=== PATIENT | female | born 2000 | race Caucasian/White ===

== ENCOUNTER 2023-08-04 11:45 | Emergency (ER) | payer BC ==
[~2023-08-04] VITALS: Ht 172.7 cm; Wt 86.2 kg
[2023-08-04] MEDS ORDERED: FAMOTIDINE/PF INJ 20 MG/2 ML VIAL IV ONE ×2 (12:30→12:53)
[2023-08-04] MEDS ORDERED: IV NS 0.9% 1,000 ML BAG IV ONE (12:30)
[2023-08-04] MEDS ORDERED: methylPREDNISolone SOD SUCC 125 MG/2ML VIAL IV ONE (12:30)
[2023-08-04] MEDS ORDERED: methylPREDNISolone SOD SUCC 125 MG/2ML VIAL ONE (12:52)
[2023-08-04] MEDS ORDERED: ONDANSETRON HCL/PF 4 MG/2 ML VIAL ONE ×2 (14:03→14:28)
[2023-08-04] MEDS ORDERED: FAMO-131 PO (14:22)
[2023-08-04] MEDS ORDERED: PRED20TA PO (14:22)
[2023-08-04] MEDS ORDERED: DIPH25CA83 PO (14:22)
[2023-08-04] MEDS ORDERED: ONDANSETRON HCL/PF 4 MG/2 ML VIAL IV ONE (14:30)
[2023-08-04 15:57] VITALS: BP 126/71; TEMP 97.8; O2SAT 98
== END 2023-08-04 14:35 | disposition home or self-care (01) ==
LOC: ER 11:45
DX: R11.0 Nausea (principal); T78.1XXA Other adverse food reactions, not elsewhere classified, initial encounter; Z91.010 Allergy to peanuts; X58.XXXA Exposure to other specified factors, initial encounter
CPT/HCPCS: 99284; 96374; 96375; 96361; J3490; J2930; J2405; J7030